=== PATIENT | male | born 1995 | race Caucasian/White ===

== ENCOUNTER 2022-12-05 00:58 | Emergency (ER) | payer BC, OTHER ==
[2022-12-05] MEDS ORDERED: HYDROmorphone 0.5 MG/0.5 ML Syringe IM ONE (01:28)
== END 2022-12-05 02:55 | disposition home or self-care (01) ==
LOC: JP.ED 00:58
DX: S80.01XA Contusion of right knee, initial encounter (principal); Z91.013 Allergy to seafood; W19.XXXA Unspecified fall, initial encounter; W22.8XXA Striking against or struck by other objects, initial encounter
CPT/HCPCS: 73700; 96372; 99283; J1170